=== PATIENT | female | born 1995 | race African-American/Black ===

== ENCOUNTER → 2019-12-28 | Outpatient (CLI) | payer OTHER ==
[~2019-12-28] MED LIST: DIPH50 PO; FOLI1 PO; Levothyroxine200 MCG; MULVITMINE PO; NAPR500 PO; ONDA4ODT MM; Pepcid20 MG PO
== END | disposition home or self-care (01) ==
LOC: LAB 16:24 → LAB SHORT 16:24
PROVIDERS: Obstetrics & Gynecology
DX: Z01.419 Encounter for gynecological examination (general) (routine) without abnormal findings (principal)
CPT/HCPCS: G0123

== ENCOUNTER → 2020-06-13 | Outpatient (CLI) | payer OTHER | END | disposition home or self-care (01) | LOC: LAB 15:14 → LAB SHORT 15:14 | DX: Z34.83 Encounter for supervision of other normal pregnancy, third trimester (principal) | CPT/HCPCS: 87081; 87653 ==

== ENCOUNTER 2020-08-10 10:45 | Day surgery (SDC) | payer OTHER ==
[~2020-08-10] VITALS: Ht 170.2 cm; Wt 106.6 kg
[~2020-08-10 10:45] MED LIST changes: +EUTHYROX125 MCG PO; +PRENATAL TABLE1 EAC2 PO; +Vitamin D2000 UNIT PO
--- NOTE | 2020-08-10 11:55 | NUR ---
08/10/20 1155 Zaina Mccray ATTEMPTS X2 UNSUCCESSFUL, ONE IN LEFT HAND & ONE IN LEFT FOREARM. SUCCESSFUL IV IN RIGHT HAND. ATTEMPT BY [facility]SC.RDS IN LEFT HAND, OTHERS BY [email or web address].
--- NOTE | 2020-08-10 12:36 | NUR ---
08/10/20 1236 Andrew Blackburn ABDOMINAL AREA PREPPED BY [email or web address] LAURA AREA PREPPED BY [email or web address]
== END 2020-08-10 14:05 | disposition home or self-care (01) ==
LOC: ORSCSDS 10:45
PROVIDERS: Obstetrics & Gynecology
PROC: 0UT74ZZ Resection of Bilateral Fallopian Tubes, Percutaneous Endoscopic Approach (ICD-10-PCS; principal; 2020-08-10 12:00)
DX: Z30.2 Encounter for sterilization (principal); Z87.891 Personal history of nicotine dependence; J45.909 Unspecified asthma, uncomplicated; Z79.899 Other long term (current) drug therapy; E66.01 Morbid (severe) obesity due to excess calories; Z68.36 Body mass index [BMI] 36.0-36.9, adult
CPT/HCPCS: 88302; A9270; J0171; J1100; J1885; J2250; J2405; J2704; J2710; J3010; J7120